=== PATIENT | female | born 1970 | race Caucasian/White ===

== ENCOUNTER 2018-07-06 19:28 | Emergency (ER) | payer OTHER ==
[~2018-07-06] VITALS: Ht 152.4 cm; Wt 97.5 kg
--- NOTE | 2018-07-06 20:10 | NUR ---
PT BIB SELF. COMP OF HAVING HIGH BP. 188/ NOTED. PT AOX4. NO SOB NO ACUTE DISTRESS AT THIS TIME. AWARE. AWAITING PT SHEA
[2018-07-06] MEDS ORDERED: LORAZEPAM 1 MG TABLET ONE (20:12)
--- NOTE | 2018-07-06 20:21 | NUR ---
AFTER REASSESSMENT. PT BP 151/77. NO ACUTE DISTRESS NOTED.
[2018-07-06 20:22] VITALS: BP 150/71
[2018-07-06] MEDS ORDERED: LORAZEPAM 1 MG TABLET PO ONE (20:30)
== END 2018-07-06 20:23 | disposition home or self-care (01) ==
LOC: ER 19:32
DX: F41.9 Anxiety disorder, unspecified (principal); I10 Essential (primary) hypertension; E11.9 Type 2 diabetes mellitus without complications; F43.20 Adjustment disorder, unspecified; F43.0 Acute stress reaction
CPT/HCPCS: 99284; A4606